=== PATIENT | female | born 2000 | race Asian ===

== ENCOUNTER 2024-01-12 09:33 | Emergency (ER) | payer MEDICAID ==
[~2024-01-12] VITALS: Ht 162.6 cm; Wt 59.0 kg
[2024-01-12 09:39] VITALS: BP 96/89; PULSE 80; RESP 18; O2SAT 100
[2024-01-12] MEDS ORDERED: TOPUD PO (09:57)
[2024-01-12 10:08] LABS: BASOPHILS % 0.6 % (0.0-2.0); DIFFERENTIAL COMMENT 0; EOSINOPHILS % 2.2 % (0.0-5.0); HEMOGLOBIN. 13.7 g/dL (12.0-16.0); LYMPHOCYTES % 33.2 % (20.0-50.0); MEAN CORPUSCULAR HEMOGLOBIN 24.9 pg (28.0-32.0); MEAN CORPUSCULAR HGB CONC 32.6 g/dL (31.0-37.0); MEAN CORPUSCULAR VOLUME 76.5 fL (81.0-99.0); MEAN PLATELET VOLUME 8.1 fl (7.4-10.4); MONOCYTES % 5.5 % (2.0-8.0); NEUTROPHILS % 58.5 % (40.0-76.0); PLATELET 338 x1000/uL (130-400); RED BLOOD CELL COUNT 5.49 mill/uL (4.2-5.4); RED CELL DISTRIBUTION WIDTH 14.3 % (11.6-14.6); WHITE BLOOD COUNT 6.6 x1000/uL (4.5-11.0)
[2024-01-12 10:26] LABS: CARBON DIOXIDE 25 mEq/L (21-32); CHLORIDE 107 mEq/L (98-107); SODIUM 138 mEq/L (136-145)
[2024-01-12 10:27] LABS: CALCIUM 9.7 mg/dL (8.7-10.4)
[2024-01-12 10:31] LABS: CREATININE 0.7 mg/dL (0.6-1.0)
[2024-01-12 10:32] LABS: GLUCOSE 93 mg/dL (70-105); UREA NITROGEN BLOOD 9 mg/dL (9-23)
[2024-01-12 10:52] VITALS: TEMP 98
[2024-01-12] MEDS: ACETAMINOPHEN 325MG TABLET PO STA (10:52)
== END 2024-01-12 10:55 | disposition home or self-care (01) ==
LOC: EDBEDREQ 09:51 → ER 10:22
DX: M79.18 Myalgia, other site (principal)
CPT/HCPCS: 36415; 80048; 85025; 99283